=== PATIENT | male | born 1990 | race American Indian/Alaskan Native ===

== ENCOUNTER 2017-05-25 21:46 | Emergency (ER) | payer OTHER ==
--- NOTE | 2017-05-25 21:49 | ED PDOC ---
HPI: CCC, URI, Sore Throat Time Seen by Provider: 05/25/17 21:49 Chief Complaint (Provider): cough History Per: Patient Additional Complaint(s): 26-year-old male with history of asthma presents to emergency department with cough and congestion 4 days. Patient also has mild headache and thinks he may have had fever. Patient denies recent travel or known sick contacts. Past Medical History Reviewed: Historical Data, Nursing Documentation, Vital Signs Vital Signs: Last Vital Signs Temp 98.2 F 05/25/17 22:01 Pulse 89 05/25/17 22:01 Resp 16 05/25/17 22:01 BP 140/84 05/25/17 22:01 Pulse Ox 99 05/25/17 22:01 - Medical History PMH: Asthma - Surgical History Surgical History: No Surg Hx - Family History Family History: States: No Known Family Hx - Living Arrangements Living Arrangements: With Family - Social History Current smoker - smoking cessation education provided: No Alcohol: Social Drugs: Cannabis - Home Medications Home Medications: Ambulatory Orders Medication Instructions Recorded Guaifenesin/Pseudoephedrne HCl 1 tab PO DAILY PRN #30 ter 03/23/15 [Mucinex D 600 mg-60 mg] Ibuprofen [Motrin] 600 mg PO Q6 PRN #10 tab 03/23/15 Dextromethorphan Hydrobromid 15 mg PO TID #100 ml 06/16/15 [Dextromethorphan HBr Adult Formula] Non-Formulary 1 ea XX DAILY #1 ea 06/16/15 Sodium Chloride [Saline Solution 5 5 ml IH DAILY #20 joey 06/16/15 ml] Albuterol HFA [Ventolin HFA 90 1 puff IH Q6 PRN #1 inhaler 05/25/17 mcg/actuation (8 g)] Azithromycin [Zithromax] 250 mg PO DAILY #6 tab 05/25/17 Benzonatate 200 mg PO TID PRN #20 capsule 05/25/17 - Allergies Allergies/Adverse Reactions: Allergies Allergy/AdvReac Type Severity Reaction Status Date / Time No Known Allergies Allergy Verified 05/25/17 22:01 Review of Systems ROS Statement: Except As Marked, All Systems Reviewed And Found Negative Constitutional: Positive for: Fever (subjective, not measured) ENT: Positive for: Nose Congestion Respiratory: Positive for: Cough, Sputum (yellow) Gastrointestinal: Negative for: Nausea, Vomiting Physical Exam - Reviewed Nursing Documentation Reviewed: Yes Vital Signs Reviewed: Yes - Physical Exam Appears: Positive for: Well, Non-toxic, No Acute Distress Skin: Negative for: Rash Eye Exam: Positive for: Normal appearance ENT: Positive for: Nasal Congestion. Negative for: Pharyngeal Erythema Cardiovascular/Chest: Positive for: Regular Rate, Rhythm Respiratory: Positive for: Rhonchi. Negative for: Wheezing, Respiratory Distress Extremity: Positive for: Normal ROM Neurologic/Psych: Positive for: Alert, Oriented - ECG O2 Sat by Pulse Oximetry: 99 Pulse Ox Interpretation: Normal - Other Rad CXR X-Ray: Interpreted by Me, Viewed By Me X-Ray Interpretation: no infiltrate Medical Decision Making Medical Decision Makin26 year old with cough and congestion Plan: CXR Patient provided with prescriptions for Tessalon Perles, Zithromax and Ventolin inhaler. He was advised to take meds as directed and was referred to clinic for follow-up. Disposition - Clinical Impression Clinical Impression: Upper respiratory infection - Patient ED Disposition Is Patient to be Admitted: No Counseled Patient/Family Regarding: Studies Performed, Diagnosis, Need For Followup, Rx Given - Disposition Referrals: [facility] [Outside] Disposition: Routine/Home Disposition Time: 22:29 Condition: STABLE Additional Instructions: Take prescription medications as directed. Follow up in 2-3 days with primary care doctor or clinic. Prescriptions: Albuterol HFA [Ventolin HFA 90 mcg/actuation (8 g)] 1 puff IH Q6 PRN #1 inhaler PRN Reason: Cough Azithromycin [Zithromax] 250 mg PO DAILY #6 tab Benzonatate 200 mg PO TID PRN #20 capsule PRN Reason: Cough Instructions: Upper Respiratory Infection (ED) Forms: [facility] ED School/Work Excuse
[2017-05-25 22:03] VITALS: BP 140/84; PULSE 89; RESP 16; TEMP 98.2; O2SAT 99
--- NOTE | 2017-05-26 10:35 | RAD ---
HISTORY: cough COMPARISON: Comparison chest dated 06/16/2015. TECHNIQUE: Chest PA and lateral FINDINGS: LUNGS: No active pulmonary disease. PLEURA: No significant pleural effusion identified. No pneumothorax apparent. CARDIOVASCULAR: Normal. OSSEOUS STRUCTURES: There appears to be a very subtle levoscoliosis VISUALIZED UPPER ABDOMEN: Normal. OTHER FINDINGS: None. IMPRESSION: No acute intracranial hemorrhage.
== END 2017-05-25 22:43 | disposition home or self-care (01) ==
LOC: H.ER 21:46
DX: J06.9 Acute upper respiratory infection, unspecified (principal); J45.909 Unspecified asthma, uncomplicated